=== PATIENT | female | born 1965 | race Caucasian/White ===

== ENCOUNTER → 2016-12-18 | Outpatient (CLI) | payer OTHER | LOC: MRI 10:31 | DX: M51.36 Other intervertebral disc degeneration, lumbar region (principal) ==

== ENCOUNTER 2016-12-28 02:09 | Inpatient (IN) | payer OTHER ==
[~2016-12-28] VITALS: Ht 167.6 cm; Wt 72.6 kg
[2016-12-28 02:10] VITALS: BP 129/80
[2016-12-28] MEDS ORDERED: LEXAPRO 10 MG T10 M2 PO (02:22)
[2016-12-28] MEDS ORDERED: VYVANSE70 MG (02:22)
[2016-12-28 03:17] LABS: ABSOLUTE NEUTROPHILS 5.4 thou/uL (1.4-8.2); BASOPHILS 0.7 % (0.0-2.0); EOSINOPHILS 2.6 % (0.0-3.0); HEMATOCRIT 42.7 % (37.0-47.0); HEMOGLOBIN 14.8 gm/dL (12.0-15.0); LYMPHOCYTES 36.5 % (24.0-44.0); MCH 34.1 pg (26.0-34.0); MCHC 34.8 g/dL (28.0-37.0); MCV 98.2 fL (80.0-100.0); MONOCYTES 7.9 % (1.0-8.0); PLATELET COUNT 236 thou/uL (150-400); POLYS 52.3 % (36.0-66.0); RBC 4.35 mil/uL (4.20-5.00); RDW 13.6 % (10.5-14.5); WBC 10.3 thou/uL (4.0-11.0)
[2016-12-28 03:21] LABS: MANUAL DIFF NO
[2016-12-28 03:29] LABS: CALCIUM 8.8 mg/dL (8.5-10.1); CREATININE 0.6 mg/dL (0.6-1.0); POTASSIUM 3.6 mmol/L (3.5-5.1)
[2016-12-28] MEDS ORDERED: VENTOLIN HFA 1818 GM INH (04:18)
[2016-12-28] MEDS ORDERED: METRONIDAZOLE70 GM VG (04:19)
[2016-12-28 04:25] VITALS: BP 103/61
[2016-12-28 08:00] VITALS: BP 99/63
[2016-12-28] MEDS ORDERED: ZOFRAN ODT4 MG DISSOLVE (14:42)
[2016-12-28 15:36] VITALS: BP 99/63
== END 2016-12-28 16:21 | disposition home or self-care (01) | DRG 641 ==
LOC: ER 02:09 → 4S 03:54 → EROBS 03:54 → 4S 04:27
PROVIDERS: Emergency Medicine
DX: E16.2 Hypoglycemia, unspecified (principal); F98.8 Other specified behavioral and emotional disorders with onset usually occurring in childhood and adolescence; F17.210 Nicotine dependence, cigarettes, uncomplicated; F32.9 Major depressive disorder, single episode, unspecified; M54.9 Dorsalgia, unspecified; G89.29 Other chronic pain; Z83.3 Family history of diabetes mellitus; Z71.6 Tobacco abuse counseling; Z88.6 Allergy status to analgesic agent; Z88.1 Allergy status to other antibiotic agents; Z79.899 Other long term (current) drug therapy
CPT/HCPCS: 10195